=== PATIENT | female | born 1980 | race Caucasian/White ===

== ENCOUNTER 2016-12-10 13:00 | Emergency (ER) | payer OTHER ==
[2016-12-10 13:04] VITALS: BP 120/77; PULSE 98; TEMP 98.2; BMI 25.4
--- NOTE | 2016-12-10 15:13 | PDOC ---
History of Present Illness - General Chief Complaint: Back Pain Stated Complaint: BACK PAIN Time Seen by Provider: 12/10/16 14:28 History Source: Patient Exam Limitations: No Limitations - History of Present Illness Initial Comments: 12/10/16 16:20 My chief complaint: Bilateral mid back pain intermittent since 12/07/2016 History of present illness: Patient is a 36-year-old female with a history of asthma and GERD and facial acne here today due to patient having mid lower back pain bilaterally that started on 12/07/2016 after lying down that was severe without any radiation of pain down the legs or weakness of legs or numbness of legs or any saddle anesthesia. Patient reports that began last night she had similar back pain when she lied down. Patient denies any nasal congestion, cough , any shortness of breath any wheezing, any nausea or vomiting or diarrhea or fever or any urinary symptoms no dysuria, frequency, hematuria or urgency or any abdominal pain. Patient does report eating cereal and lying down immediately afterward for the last 3 weeks. Patient denies any new activities or any heavy lifting. Patient denies being sexually active for 2 months patient stopped her control pills 1 month ago. Patient denies any swelling of her legs or any recent travel or any palpitations or any chest pain. Patient reports drinking a lot of water to help alleviate back pain on 12/07/16 and last night. She denies any increase in pain with movement. Occurred: reports: other (intermittent starting 3 days ago) Pain Location: reports: back (mid back b/l ) Method of Injury: Yes: unknown Modifying Factors: improves with: None Loss of Consciousness: no loss of consciousness Associated Symptoms (Fall): denies symptoms Past History - Past Medical History Allergies/Adverse Reactions: Allergies Allergy/AdvReac Type Severity Reaction Status Date / Time No Known Drug Allergies Allergy Verified 12/10/16 13:04 Home Medications: Ambulatory Orders Albuterol Sulfate [Proventil Hfa] 6.7 gm IH PRN PRN #1 07/23/11 Fluticasone/Salmeterol [Advair 250-50 Diskus] 1 each IH BID 11/03/15 Norethindrone-E.estradiol-Iron [Junel Fe 1.5 mg-30 Mcg Tablet] 1 each PO DAILY 11/03/15 Pantoprazole Sodium [Protonix] 40 mg PO DAILY #30 tablet. 11/03/15 Spironolactone [Aldactone] 25 mg PO TID 11/03/15 Anemia: No Asthma: Yes Cancer: No Cardiac Disorders: No CVA: No COPD: No CHF: No Dementia: No Diabetes: No GI Disorders: Yes (GERD) Disorders: No HTN: No Hypercholesterolemia: No Liver Disease: No Seizures: No Thyroid Disease: No - Surgical History Abdominal Surgery: No Appendectomy: No Cardiac Surgery: No Cholecystectomy: No Lung Surgery: No Neurologic Surgery: No Orthopedic Surgery: No - Suicide/Smoking/Psychosocial Hx Smoking Status: Yes Smoking History: Current every day smoker Have you smoked in the past 12 months: Yes Number of Cigarettes Smoked Daily: 10 Information on smoking cessation initiated: Yes 'Breaking Loose' booklet given: 12/08/13 Hx Alcohol Use: No Drug/Substance Use Hx: No Substance Use Type: None Hx Substance Use Treatment: No Review of Systems - Review of Systems Able to Perform ROS?: Yes Constitutional: No: Symptoms Reported HEENTM: No: Symptoms Reported Respiratory: No: Symptoms reported Cardiac (ROS): No: Symptoms Reported ABD/GI: No: Symptoms Reported : No: Symptoms Reported Musculoskeletal: Yes: Back Pain (mid b/l back pain intermittent worse with lying ) Integumentary: No: Symptoms Reported Neurological: No: Symptoms reported *Physical Exam - Vital Signs Last Vital Signs Temp Pulse Resp BP Pulse Ox 98.2 F 98 H 18 120/77 100 12/10/16 13:02 12/10/16 13:02 12/10/16 13:02 12/10/16 13:02 12/10/16 13:02 - Physical Exam Comments: 12/10/16 15:41 General Appearance: Yes: Appropriately Dressed HEENT: positive: Normal ENT Inspection Neck: negative: Lymphadenopathy (R), Lymphadenopathy (L) Respiratory/Chest: positive: Lungs Clear, Normal Breath Sounds. negative: Chest Tender, Respiratory Distress Cardiovascular: positive: Regular Rhythm, Regular Rate, S1, S2 Gastrointestinal/Abdominal: positive: Normal Bowel Sounds, Soft. negative: Tender, Organomegaly, Distended, Guarding, Rebound, Tenderness, Hepatomegaly, Spleenomegaly Musculoskeletal: positive: Normal Inspection. negative: CVA Tenderness, CVA Tenderness (R), CVA Tenderness (L), Decreased Range of Motion, Muscle Spasm, Vertebral Tenderness Extremity: positive: Normal Capillary Refill, Normal Inspection, Normal Range of Motion Integumentary: positive: Normal Color Neurologic: positive: Alert, Normal Response, Motor Strength 5/5, Respond to painful stimul, Responsive, Finger to Nose (negative SLR b/l ), Other (negative SLR b/l ). negative: Numbness, Sensory Deficit ED Treatment Course - LABORATORY CBC & Chemistry Diagram: 12/10/16 15:43 12/10/16 15:42 Medical Decision Making - Medical Decision Making 12/10/16 16:20 Patient is a 36-year-old female with a history of asthma and GERD and facial acne here today due to patient having mid lower back pain bilaterally that started on 12/07/2016 after lying down that was severe without any radiation of pain down the legs or weakness of legs or numbness of legs or any saddle anesthesia. Patient reports that began last night she had similar back pain when she lied down. Patient denies any nasal congestion, cough, any shortness of breath any wheezing, any nausea or vomiting or diarrhea or fever or any urinary symptoms no dysuria, frequency, hematuria or urgency or any abdominal pain. Patient does report eating cereal and lying down immediately afterward for the last 3 weeks. Patient denies any new activities or any heavy lifting. Patient denies being sexually active for 2 months patient stopped her control pills 1 month ago. Patient denies any swelling of her legs or any recent travel or any palpitations or any chest pain. Patient reports drinking a lot of water to help alleviate back pain on 12/07/16 and last night. She denies any increase in pain with movement. Pt. denies any recent travel. Pt. reports that she was beldging more last night when having pain. Patient does not have pain presently. R/O UTI/pyelonephritis b/l mid back pain will consider worsening GERD r/o renal calculi PLAN: ua/ urine hcg urine C & S cbc with diff bmp d-dimer 12/10/16 16:24 Laboratory Tests 12/10/16 12/10/16 12/10/16 15:42 15:43 15:43 WBC RBC Hgb Hct MCV MCH MCHC RDW Plt Count MPV Neutrophils % Lymphocytes % Monocytes % Eosinophils % Basophils % Sodium 141 Potassium 3.8 Chloride 105 Carbon Dioxide 25 Anion Gap 11 BUN 9 Creatinine 0.6 Random Glucose 77 Calcium 8.7 Urine Color Ltyellow Urine Appearance Clear Urine pH 6.0 Urine Protein Negative Urine Glucose (UA) Negative Urine Ketones Negative Urine Blood 1+ H Urine Nitrite Negative Urine Bilirubin Negative Urine Urobilinogen Negative Urine HCG, Qual Negative 12/10/16 15:43 WBC 9.9 RBC 5.15 Hgb 15.0 D Hct 44.5 D MCV 86.5 MCH 29.2 MCHC 33.7 RDW 14.3 Plt Count 247 MPV 8.9 Neutrophils % 60.1 Lymphocytes % 33.7 D Monocytes % 5.0 Eosinophils % 0.5 D Basophils % 0.7 Sodium Potassium Chloride Carbon Dioxide Anion Gap BUN Creatinine Random Glucose Calcium Urine Color Urine Appearance Urine pH Urine Protein Urine Glucose (UA) Urine Ketones Urine Blood Urine Nitrite Urine Bilirubin Urine Urobilinogen Urine HCG, Qual 12/10/16 16:50 Laboratory Tests 12/10/16 15:42 D-Dimer < 200 12/10/16 18:[address] without contrast abdomen and pelvis without contrast was negative for any obstructive uropathy. No renal, urethral or urinary bladder calculi Patient instructed not to eat lied down for at least 2 hours Patient instructed to take acetaminophen as needed as directed by manufacture if pain occurs even after not lying down for after eating for at least 2 hours Patient to follow up with her primary care provider 12/10/16 18:37 *DC/Admit/Observation/Transfer Diagnosis at time of Disposition: Chronic GERD - Discharge Dispostion Disposition: HOME Condition at time of disposition: Stable - Referrals Referrals: Lena Clark MD [Primary Care Provider] - - Patient Instructions Additional Instructions: Follow-up with your primary care provider within the next few days Do not eat and my down for at least 2 hours Return to emergency room if symptoms worsen or new symptoms develop Take only 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
[2016-12-10 16:09] LABS: ANION GAP 11 (8-16); CALCIUM 8.7 mg/dL (8.5-10.1); CO2 25 mmol/L (21-32); CREATININE 0.6 mg/dL (0.55-1.02); GLUCOSE,RANDOM 77 mg/dL (74-106)
[2016-12-10 16:10] LABS: BASOPHIL 0.7 % (0-2.0); EOSINOPHIL 0.5 % (0-4.5); MCH 29.2 pg (25.7-33.7); MCHC 33.7 g/dl (32.0-36.0); MEAN CELL VOLUME 86.5 fl (80-96); MEAN PLT VOLUME 8.9 fl (7.5-11.1); NEUTROPHILS 60.1 % (42.8-82.8); PLATELET COUNT 247 K/MM3 (134-434); RDW 14.3 % (11.6-15.6); WHITE BLOOD COUNT 9.9 K/mm3 (4.0-10.0)
[2016-12-10 16:25] LABS: URINE APPEARANCE CLEAR; URINE BILIRUBIN NEGATIVE (NEGATIVE); URINE BLOOD 1+ (NEGATIVE); URINE COLOR LTYELLOW; URINE GLUCOSE (UA) NEGATIVE (NEGATIVE); URINE KETONE NEGATIVE (NEGATIVE); URINE NITRITE NEGATIVE (NEGATIVE); URINE PROTEIN NEGATIVE (NEGATIVE); URINE UROBILINOGEN NEGATIVE mg/dL (0.2-1.0)
[2016-12-10 17:37] LABS: URINE RBC 1 /hpf (0-3); URINE WBC <1 /hpf (3-5)
[2016-12-10 21:29] LABS: URINE LEUK ESTERASE Negative (NEGATIVE)
== END 2016-12-10 18:41 | disposition home or self-care (01) ==
LOC: JERFT 13:00
DX: K21.9 Gastro-esophageal reflux disease without esophagitis (principal); Z87.09 Personal history of other diseases of the respiratory system
CPT/HCPCS: 36415; 74176; 80048; 81003; 81015; 84703; 85025; 85379; 87086; 99281-25

== ENCOUNTER 2018-01-04 12:55 | Emergency (ER) | payer OTHER ==
[2018-01-04 13:15] VITALS: BP 118/64; PULSE 103; TEMP 98.6; BMI 26.9
--- NOTE | 2018-01-04 13:29 | PDOC ---
History of Present Illness - General Chief Complaint: Pain Stated Complaint: ABD PAIN, LBP Time Seen by Provider: 01/04/18 13:09 History Source: Patient Exam Limitations: No Limitations - History of Present Illness Travel History: No Initial Comments: 01/04/18 13:45 37-year-old female presents to ED with 3 day history of pressure, frequency, dysuria, and urethral itching. Patient took [id number] AZO with no improvement. Patient denies vaginal discharge, irregular menses, or hx of ovarian cyst. Timing/Duration: reports: constant Quality: reports: mild, other (pressure) Abdominal Pain Onset Location: reports: suprapubic Pain Radiation: reports: no radiation Activities at Onset: reports: none Aggravating Factors: improves with: None Alleviating Factors: improves with: None Past History - Travel Traveled outside of the country in the last 30 days: No - Past Medical History Allergies/Adverse Reactions: Allergies Allergy/AdvReac Type Severity Reaction Status Date / Time No Known Drug Allergies Allergy Verified 01/04/18 13:08 Home Medications: Ambulatory Orders Albuterol Sulfate [Proventil Hfa] 6.7 gm IH PRN PRN #1 07/23/11 Fluticasone/Salmeterol [Advair 250-50 Diskus] 1 each IH BID 11/03/15 Norethindrone-E.estradiol-Iron [Junel Fe 1.5 mg-30 Mcg Tablet] 1 each PO DAILY 11/03/15 Pantoprazole Sodium [Protonix] 40 mg PO DAILY #30 tablet. 11/03/15 Spironolactone [Aldactone] 25 mg PO TID 11/03/15 Anemia: No Asthma: Yes Cancer: No Cardiac Disorders: No CVA: No COPD: No CHF: No Dementia: No Diabetes: No GI Disorders: Yes (GERD) Disorders: No HTN: No Hypercholesterolemia: No Liver Disease: No Seizures: No Thyroid Disease: No - Surgical History Abdominal Surgery: No Appendectomy: No Cardiac Surgery: No Cholecystectomy: No Lung Surgery: No Neurologic Surgery: No Orthopedic Surgery: No - Suicide/Smoking/Psychosocial Hx Smoking Status: Yes Smoking History: Current every day smoker Have you smoked in the past 12 months: Yes Number of Cigarettes Smoked Daily: 10 Information on smoking cessation initiated: No 'Breaking Loose' booklet given: 12/08/13 Hx Alcohol Use: No Drug/Substance Use Hx: No Substance Use Type: None Hx Substance Use Treatment: No Patient Lives Alone: No Lives with/in: spouse/SO Abd/GI Specific PMHX - Complaint Specific PMHX GERD: Yes Review of Systems - Review of Systems Able to Perform ROS?: Yes Constitutional: No: Symptoms Reported ABD/GI: Yes: Abdominal cramping : Yes: Burning, Dysuria, Frequency, Urgency Musculoskeletal: No: Symptoms Reported Integumentary: No: Symptoms Reported Neurological: No: Symptoms reported *Physical Exam - Vital Signs Last Vital Signs Temp Pulse Resp BP Pulse Ox 98.6 F 103 H 20 118/64 99 01/04/18 13:05 01/04/18 13:05 01/04/18 13:05 01/04/18 13:05 01/04/18 13:05 - Physical Exam General Appearance: Yes: Nourished, Appropriately Dressed. No: Apparent Distress Female Pelvic Exam: positive: normal external exam. negative: discharge, vaginal bleeding Gastrointestinal/Abdominal: positive: Normal Bowel Sounds, Soft, Tenderness ( mild midsuprapubic) Integumentary: positive: Normal Color, Warm, Moist Neurologic: positive: Motor Strength 5/5 (ambulatory) Medical Decision Making - Medical Decision Making 01/04/18 13:51 CC: urinary complaints with mild LBP aching Exam: no cva tenderness, + mid suprapubic tenderness Plan: UA, ucx, u preg 01/04/18 14:02 Laboratory Tests 01/04/18 13:20 Urine Glucose (UA) Negative Urine Ketones Trace H Urine Blood 2+ H Urine Nitrite Negative Ur Leukocyte Esterase 2+ H Urine WBC (Auto) 265 Urine RBC (Auto) 76 Pt will be prescribed bactrim for tx of pyelonephritis *DC/Admit/Observation/Transfer Diagnosis at time of Disposition: Kidney infection - Discharge Dispostion Disposition: HOME Condition at time of disposition: Good - Referrals Referrals: Lena Clark MD [Primary Care Provider] - - Patient Instructions Printed Discharge Instructions: DI for Kidney Infection Additional Instructions: Please drink at least 2 liters daily. Wipe form front top back. Take Bactrim as prescribed - Post Discharge Activity
[2018-01-04 13:41] LABS: URINE APPEARANCE SLCLOUDY; URINE BILIRUBIN NEGATIVE (<2.0 mg/dL); URINE COLOR YELLOW; URINE GLUCOSE (UA) NEGATIVE (NEGATIVE); URINE KETONE TRACE (NEGATIVE); URINE LEUK ESTERASE 2+ (NEGATIVE); URINE NITRITE NEGATIVE (NEGATIVE); URINE PROTEIN NEGATIVE (NEGATIVE); URINE UROBILINOGEN NEGATIVE mg/dL (0.2-1.0)
[2018-01-04 13:43] LABS: HCG,QUALITATIVE URINE Negative
[2018-01-04 13:58] LABS: EPI CELLS RARE /HPF (FEW); URINE MUCUS FEW
== END 2018-01-04 14:08 | disposition home or self-care (01) ==
LOC: JER 12:55 → JERFT 12:55
DX: N28.89 Other specified disorders of kidney and ureter (principal); N15.9 Renal tubulo-interstitial disease, unspecified; Z87.09 Personal history of other diseases of the respiratory system; Z87.19 Personal history of other diseases of the digestive system
CPT/HCPCS: 81003; 81015; 84703; 87086; 87186; 99281-25

== ENCOUNTER 2020-05-10 08:32 | Emergency (ER) | payer OTHER ==
[2020-05-10 08:39] VITALS: BP 112/74; PULSE 99; TEMP 98.2; BMI 25.4
[2020-05-10] MEDS ORDERED: FAMOTIDINE 20 MG TABLET PO ONE (09:19)
[2020-05-10] MEDS ORDERED: DEXAMETHASONE LIQUID 0.5 MG/5 ML PO ONE (09:19)
[2020-05-10] MEDS ORDERED: FAMOTIDINE 20 MG TABLET ONE (09:25)
[2020-05-10] MEDS ORDERED: DEXAMETHASONE SOD PHOSPHATE 10 MG/1 ML VIAL ONE (09:25)
== END 2020-05-10 09:32 | disposition home or self-care (01) ==
LOC: JERFT 08:32
DX: T20.10XA Burn of first degree of head, face, and neck, unspecified site, initial encounter (principal); T78.40XA Allergy, unspecified, initial encounter
CPT/HCPCS: 99283-25

== ENCOUNTER 2020-08-06 10:03 | Emergency (ER) | payer OTHER ==
[2020-08-06 10:10] VITALS: BP 117/76; PULSE 94; TEMP 98.4; BMI 26.9
== END 2020-08-06 11:47 | disposition home or self-care (01) ==
LOC: JER 10:03
DX: J06.9 Acute upper respiratory infection, unspecified (principal); K22.6 Gastro-esophageal laceration-hemorrhage syndrome
CPT/HCPCS: 71046-TC-FY; 99284-25